=== PATIENT | male | born 1970 | race Caucasian/White ===

== ENCOUNTER 2019-09-02 06:21 | Emergency (ER) | payer OTHER ==
[2019-09-02 06:47] VITALS: BP 126/80; PULSE 77; TEMP 98.3; BMI 27.4
[2019-09-02] MEDS ORDERED: IBUPROFEN 400 MG TABLET (FP) PO ONE ×2 (07:35→08:55)
--- NOTE | 2019-09-02 07:35 | PDOC ---
History of Present Illness - General Chief Complaint: Pain Stated Complaint: INJURY Time Seen by Provider: 09/02/19 06:58 - History of Present Illness Initial Comments: 09/02/19 07:24 48 y/o male with no PMHx here with L leg injury ealrier this morning. Patient works at [employer] and was operating a asher hammer when the side of the asher hammer hit the inner part of his leg and his leg was pushed against a meat case. No fall, head trauma or LOC. Is now c/o L inner lower leg pain and L foot pain. Pain is worse with ambulating. Past History - Past Medical History Allergies/Adverse Reactions: Allergies Allergy/AdvReac Type Severity Reaction Status Date / Time No Known Allergies Allergy Verified 09/02/19 06:47 - Psycho Social/Smoking Cessation Hx Smoking History: Never smoked Hx Alcohol Use: Yes Drug/Substance Use Hx: No Review of Systems - Review of Systems Constitutional: No: Chills, Fever HEENTM: No: Blurred Vision, Double Vision Respiratory: No: Cough, Shortness of Breath Cardiac (ROS): No: Chest Pain, Lightheadedness, Palpitations, Syncope ABD/GI: No: Constipated, Diarrhea, Nausea, Vomiting *Physical Exam - Vital Signs Last Vital Signs Temp Pulse Resp BP Pulse Ox 98.3 F 77 18 126/80 97 09/02/19 06:22 09/02/19 06:22 09/02/19 06:22 09/02/19 06:22 09/02/19 06:22 - Physical Exam General Appearance: Yes: Nourished, Appropriately Dressed HEENT: positive: Normal Voice, Hearing Grossly Normal Neck: positive: Trachea midline, Supple Respiratory/Chest: positive: Lungs Clear, Normal Breath Sounds Cardiovascular: positive: Regular Rhythm, S1, S2 Vascular Pulses: Dorsalis-Pedis (R): 2+, Doralis-Pedis (L): 2+ Gastrointestinal/Abdominal: positive: Normal Bowel Sounds, Soft Extremity: positive: Other (LLE: L medial calf abrasion, point tenderness over L medial calcaneus, 2+ DP pulse) 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 VS unremarkable PE significant for L lateral leg pain and L calcaneal point tenderness. Will obtain L knee, L Tib/Fib, L foot XRs. 09/02/19 09:09 Foot, Tib/Fib, Ankle Xray negative for acute fracture 09/02/19 09:53 Patient reassessed @ bedside. Symptomatically improved, less pain on ambulation s/p NSAID. Will d/c home with return precautions, NSAID for analgesia. Clinical Impression: Muscle Strain/Contusion Discharge - Discharge Information Problems reviewed: Yes Clinical Impression/Diagnosis: Contusion of muscle Condition: Fair Disposition: HOME - Admission No - Follow up/Referral - Patient Discharge Instructions Patient Printed Discharge Instructions: Muscle Strain, DI for Contusion Additional Instructions: You are safe for discharge home. You can take Motrin 800 mg every 6 hours for your pain as needed up to 3200 mg total for your pain. Return to the Emergency Department for any new/worsening/concerning symptoms including severe pain, severe swelling or bruising. - Post Discharge Activity Work/Back to School Note: Back to Work
--- NOTE | 2019-09-02 10:09 | PDOC ---
Attending Attestation - Resident Resident Name: BrandiMichelle - ED Attending Attestation I have performed the following: I have examined & evaluated the patient, The case was reviewed & discussed with the resident, I agree w/resident's findings & plan - HPI HPI: 09/02/19 10:07 48-year-old healthy male presents with left lower leg pain after accidental injury. Patient was using a jackhammer, which slipped, and the body of the jackhammer struck his left knee and left inner lower leg, pushing it into a wall. No actual penetrating injury, was ambulatory at scene but complaining of some knee and left heel discomfort. No other injuries. - Physicial Exam PE: 09/02/19 10:08 Vital signs stable Well-appearing and comfortable seated in stretcher in no acute distress No hip tenderness, positive medial and lateral L knee discomfort to palpation in the joint spaces, no focal bony tenderness. Full flexion and extension with full strength, no laxity on anterior/posterior/valgus/varus stress. Full range of motion of ankle and toes with full strength, no focal bony tenderness, Ankle mortise is intact. No joint effusion. Neurovascular intact distally. Ambulatory with slight antalgia - Medical Decision Making 09/02/19 10:09 48-year-old male with left lower leg contusion/knee sprain, rule out fracture. No penetrating injury, no significant swelling, neurovascular intact. X-ray showed no evidence of fracture or dislocation RICE, ambulation as tolerated, Eric wrap for support
== END 2019-09-02 10:49 | disposition home or self-care (01) ==
LOC: JER 06:21
DX: S86.812A Strain of other muscle(s) and tendon(s) at lower leg level, left leg, initial encounter (principal); S80.12XA Contusion of left lower leg, initial encounter; S80.812A Abrasion, left lower leg, initial encounter; W31.2XXA Contact with powered woodworking and forming machines, initial encounter; Y93.89 Activity, other specified; Y92.512 Supermarket, store or market as the place of occurrence of the external cause; Y99.0 Civilian activity done for income or pay
CPT/HCPCS: 73562-TC-LT-FY; 73590-TC-LT-FY; 73610-TC-LT-FY; 73630-TC-LT; 99283-25

== ENCOUNTER 2021-10-15 04:37 | Emergency (ER) | payer OTHER, BC ==
[2021-10-15 05:08] VITALS: BP 119/79; PULSE 78; TEMP 99.2; BMI 32.5
[2021-10-15] MEDS ORDERED: KETOROLAC TROMETHAMINE 30 MG/1 ML VIAL IM ONE (07:18)
[2021-10-15] MEDS ORDERED: METHOCARBAMOL 500 MG TABLET PO ONE (07:19)
[2021-10-15] MEDS ORDERED: METHOCARBAMOL 500 MG TABLET ONE (07:23)
[2021-10-15] MEDS ORDERED: KETOROLAC TROMETHAMINE 30 MG/1 ML VIAL ONE (07:23)
== END 2021-10-15 07:30 | disposition home or self-care (01) ==
LOC: JER 04:37
PROC: 3E0233Z Introduction of Anti-inflammatory into Muscle, Percutaneous Approach (ICD-10-PCS; principal; 2021-10-15)
DX: M54.32 Sciatica, left side (principal)
CPT/HCPCS: 99284-25

== ENCOUNTER 2021-11-03 05:47 | Emergency (ER) | payer OTHER, BC ==
[2021-11-03 05:55] VITALS: BP 136/88; PULSE 66; TEMP 98; BMI 32.5
[2021-11-03] MEDS ORDERED: LIDOCAINE 5% TOPICAL PATCH TP ONE (06:15)
[2021-11-03] MEDS ORDERED: KETOROLAC TROMETHAMINE 30 MG/1 ML VIAL IM ONE (06:16)
[2021-11-03] MEDS ORDERED: ACETAMINOPHEN 325 MG TABLET (FP) PO ONE (06:20)
[2021-11-03] MEDS ORDERED: KETOROLAC TROMETHAMINE 30 MG/1 ML VIAL ONE (06:28)
[2021-11-03] MEDS ORDERED: LIDOCAINE 5% TOPICAL PATCH ONE (06:28)
[2021-11-03] MEDS ORDERED: ACETAMINOPHEN 325 MG TABLET (FP) ONE (06:28)
[2021-11-03] MEDS ORDERED: oxyCODONE HCL 5 MG TABLET PO ONE (08:21)
[2021-11-03] MEDS ORDERED: oxyCODONE HCL 5 MG TABLET ONE (08:23)
[2021-11-03] MEDS ORDERED: LIDOCAINE PATCH REMOVAL MC SCH (22:00)
== END 2021-11-03 08:45 | disposition home or self-care (01) ==
LOC: JER 05:47
PROC: 3E023GC Introduction of Other Therapeutic Substance into Muscle, Percutaneous Approach (ICD-10-PCS; principal; 2021-11-03)
DX: S30.0XXA Contusion of lower back and pelvis, initial encounter (principal); X50.0XXA Overexertion from strenuous movement or load, initial encounter
CPT/HCPCS: 93005; 93010; 99284-25

== ENCOUNTER 2021-11-03 10:17 | Inpatient (IN) | payer OTHER, BC ==
[2021-11-03] MEDS ORDERED: diazePAM 5 MG TABLET PO ONE (10:43)
[2021-11-03] MEDS ORDERED: diazePAM 5 MG TABLET ONE (10:50)
[2021-11-03] MEDS ORDERED: DEXAMETHASONE SOD PHOSPHATE 10 MG/1 ML VIAL IVPUSH ONE (10:52)
[2021-11-03] MEDS ORDERED: DEXAMETHASONE SOD PHOSPHATE 10 MG/1 ML VIAL ONE (11:16)
[2021-11-03 11:35] LABS: BASO % 0.5 % (0-2.0); EOS % 0.6 % (0-4.5); HEMATOCRIT 44.3 % (35.4-49); HEMOGLOBIN 14.7 GM/dL (11.7-16.9); LYMPH % 17.8 % (8-40); MCH 27.6 pg (25.7-33.7); MCHC 33.2 g/dl (32.0-35.9); MEAN CELL VOLUME 82.9 fl (80-96); MEAN PLT VOLUME 8.5 fl (7.5-11.1); MONO % 6.5 % (3.8-10.2); NEUT % 74.6 % (42.8-82.8); PLATELET COUNT 223 10^3/uL (134-434); RBC 5.35 M/mm3 (4.00-5.60); RDW 14.6 % (11.9-15.9); WHITE BLOOD COUNT 8.7 K/mm3 (4.0-10.0)
[2021-11-03 11:51] LABS: ACTIVATED PTT 31.1 SECONDS (25.2-36.5); INR 1.02 (0.83-1.09); PROTHROMBIN TIME (PATIENT) 11.7 SEC (9.7-13.0)
[2021-11-03 12:10] LABS: CALCIUM 9.4 mg/dL (8.5-10.1)
[2021-11-03 12:11] LABS: BLOOD UREA NITROGEN 25.3 mg/dL (7-18)
[2021-11-03 12:14] LABS: CREATININE 1.1 mg/dL (0.55-1.3)
[2021-11-03 12:15] LABS: BILIRUBIN,TOTAL 0.7 mg/dL (0.2-1)
[2021-11-03 12:16] LABS: TOT PROT 7.4 g/dl (6.4-8.2)
[2021-11-03] MEDS ORDERED: PANTOPRAZOLE 40 MG TABLET PO ONE ×2 (16:28→16:31)
[2021-11-03] MEDS ORDERED: NALOXONE HCL 0.4 MG/ML VIAL IVPUSH PRN (18:53)
[2021-11-03] MEDS ORDERED: ONDANSETRON 4 MG/2 ML VIAL IVPUSH PRN (18:53)
[2021-11-03] MEDS ORDERED: DOCUSATE SODIUM 100 MG CAPSULE (FP) PO PRN (18:53)
[2021-11-03] MEDS ORDERED: oxyCODONE HCL 5 MG TABLET ONE (19:17)
[2021-11-03] MEDS: oxyCODONE HCL 5 MG TABLET PO PRN (19:23)
[2021-11-03] MEDS: HEPARIN NA (PORCINE) 5,000 UNITS/ML 1ML VIAL SQ SCH (21:08)
[2021-11-03] MEDS: GABAPENTIN 300 MG CAPSULE PO SCH (21:08)
[2021-11-03 22:51] VITALS: BMI 23.1
[2021-11-04] MEDS: oxyCODONE HCL 5 MG TABLET PO PRN ×6 (01:51→21:15)
[2021-11-04] MEDS: HEPARIN NA (PORCINE) 5,000 UNITS/ML 1ML VIAL SQ SCH ×3 (06:17→21:15)
[2021-11-04] MEDS: GABAPENTIN 300 MG CAPSULE PO SCH ×3 (06:17→21:14)
[2021-11-04] MEDS: PANTOPRAZOLE 40 MG TABLET PO SCH (09:32)
[2021-11-04] MEDS: DEXAMETHASONE SOD PHOSPHATE 10 MG/1 ML VIAL IVPUSH SCH (09:32)
[2021-11-05] MEDS: oxyCODONE HCL 5 MG TABLET PO PRN ×3 (06:00→12:38)
[2021-11-05] MEDS: GABAPENTIN 300 MG CAPSULE PO SCH ×3 (06:00→21:07)
[2021-11-05] MEDS: HEPARIN NA (PORCINE) 5,000 UNITS/ML 1ML VIAL SQ SCH ×3 (06:00→21:07)
[2021-11-05] MEDS: PANTOPRAZOLE 40 MG TABLET PO SCH (09:17)
[2021-11-05] MEDS: DEXAMETHASONE SOD PHOSPHATE 10 MG/1 ML VIAL IVPUSH SCH (09:18)
[2021-11-05] MEDS: IBUPROFEN 400 MG TABLET (FP) PO PRN (15:25)
[2021-11-06] MEDS: GABAPENTIN 300 MG CAPSULE PO SCH ×3 (05:50→21:27)
[2021-11-06] MEDS: HEPARIN NA (PORCINE) 5,000 UNITS/ML 1ML VIAL SQ SCH ×3 (05:50→21:27)
[2021-11-06] MEDS: DEXAMETHASONE SOD PHOSPHATE 10 MG/1 ML VIAL IVPUSH SCH (09:24)
[2021-11-06] MEDS: PANTOPRAZOLE 40 MG TABLET PO SCH (09:24)
[2021-11-06] MEDS: oxyCODONE HCL 5 MG TABLET PO PRN (13:17)
[2021-11-06] MEDS: IBUPROFEN 400 MG TABLET (FP) PO PRN (19:06)
[2021-11-06] MEDS: predniSONE 20 MG TABLET (UD) PO SCH (21:27)
[2021-11-07] MEDS: oxyCODONE HCL 5 MG TABLET PO PRN ×2 (06:01→20:59)
[2021-11-07] MEDS: GABAPENTIN 300 MG CAPSULE PO SCH ×3 (06:01→20:59)
[2021-11-07] MEDS: HEPARIN NA (PORCINE) 5,000 UNITS/ML 1ML VIAL SQ SCH ×3 (06:01→21:04)
[2021-11-07] MEDS: PANTOPRAZOLE 40 MG TABLET PO SCH (09:00)
[2021-11-07] MEDS: predniSONE 20 MG TABLET (UD) PO SCH ×2 (09:00→20:59)
[2021-11-07 09:16] LABS: BASO % 0.2 % (0-2.0); EOS % 0.1 % (0-4.5); HEMATOCRIT 43.6 % (35.4-49); LYMPH % 15.8 % (8-40); MCH 28.3 pg (25.7-33.7); MCHC 34.5 g/dl (32.0-35.9); MEAN CELL VOLUME 82.1 fl (80-96); MONO % 5.9 % (3.8-10.2); PLATELET COUNT 239 10^3/uL (134-434); RBC 5.31 M/mm3 (4.00-5.60); RDW 14.2 % (11.9-15.9); WHITE BLOOD COUNT 9.9 K/mm3 (4.0-10.0)
[2021-11-07 09:46] LABS: CALCIUM 9.2 mg/dL (8.5-10.1)
[2021-11-07 09:47] LABS: ALBUMIN 3.6 g/dl (3.4-5.0); BLOOD UREA NITROGEN 24.6 mg/dL (7-18)
[2021-11-07 09:51] LABS: BILIRUBIN,TOTAL 0.5 mg/dL (0.2-1)
[2021-11-07 10:06] LABS: TOT PROT 7.4 g/dl (6.4-8.2)
[2021-11-08] MEDS: GABAPENTIN 300 MG CAPSULE PO SCH ×3 (05:57→21:23)
[2021-11-08] MEDS: HEPARIN NA (PORCINE) 5,000 UNITS/ML 1ML VIAL SQ SCH ×3 (05:57→21:22)
[2021-11-08] MEDS: predniSONE 20 MG TABLET (UD) PO SCH ×2 (09:46→21:23)
[2021-11-08] MEDS: PANTOPRAZOLE 40 MG TABLET PO SCH (09:46)
[2021-11-09] MEDS ORDERED: D5-1/2NS+20 MEQ KCL - 20 MEQ/1,000 ML INFUS.BAG IV SCH ×2 (00:01→11:00)
[2021-11-09] MEDS: GABAPENTIN 300 MG CAPSULE PO SCH ×3 (06:21→21:26)
[2021-11-09] MEDS: HEPARIN NA (PORCINE) 5,000 UNITS/ML 1ML VIAL SQ SCH (06:31)
[2021-11-09] MEDS ORDERED: VANCOMYCIN 1,000 MG VIAL (RESTRICTED TO ID ONLY) ONE (09:06)
[2021-11-09] MEDS ORDERED: THROMBIN (BOVINE) 5,000 UNIT VIAL TP ONE ×2 (09:06→10:34)
[2021-11-09] MEDS ORDERED: methylPREDNISolone ACET (DEPO) 80 MG/1 ML VIAL ONE (09:06)
[2021-11-09] MEDS ORDERED: BUPIVACAINE HCL/PF 0.5% (5MG/ML) 10 ML VIAL ONE (09:06)
[2021-11-09] MEDS: PANTOPRAZOLE 40 MG TABLET PO SCH (09:10)
[2021-11-09] MEDS: predniSONE 20 MG TABLET (UD) PO SCH (09:10)
[2021-11-09] MEDS ORDERED: PROPOFOL 20 ML ONE (09:16)
[2021-11-09] MEDS ORDERED: SUCCINYLCHOLINE CHLORIDE 200 MG/10 ML SYRINGE ONE (09:16)
[2021-11-09] MEDS ORDERED: MIDAZOLAM HCL 2 MG/2 ML SINGLE DOSE VIAL ONE ×2 (09:17)
[2021-11-09] MEDS ORDERED: ROCURONIUM BROMIDE 50 MG/5 ML SYRINGE ONE (09:17)
[2021-11-09] MEDS ORDERED: ONDANSETRON 4 MG/2 ML VIAL ONE ×2 (10:09→10:12)
[2021-11-09] MEDS ORDERED: ceFAZolin SODIUM 1 GM VIAL IVPB ONE (10:22)
[2021-11-09] MEDS ORDERED: GELATIN SPONGE,ABSORBABLE 1 GM PACKET TP ONE (10:35)
[2021-11-09] MEDS ORDERED: BUPIVACAINE HCL/PF 0.5% (5 MG/ML) 30 ML VIAL IJ ONE (10:39)
[2021-11-09] MEDS ORDERED: oxyCODONE HCL 5 MG TABLET PO PRN ×2 (10:55→11:47)
[2021-11-09] MEDS ORDERED: ONDANSETRON 4 MG/2 ML VIAL IVPUSH PRN ×2 (10:55→11:47)
[2021-11-09] MEDS ORDERED: NEOSTIGMINE METHYLSULFATE 0.5 MG/1 ML - 10 ML MDV ONE (10:58)
[2021-11-09] MEDS ORDERED: diazePAM 5 MG TABLET PO SCH (11:00)
[2021-11-09] MEDS ORDERED: LACTATED RINGERS SOLUTION 1,000 ML IV SCH (11:45)
[2021-11-09] MEDS ORDERED: NALOXONE HCL 0.4 MG/ML VIAL IVPUSH PRN (11:47)
[2021-11-09] MEDS: D5-1/2NS+20 MEQ KCL - 20 MEQ/1,000 ML INFUS.BAG IV SCH (12:13)
[2021-11-09] MEDS: DOCUSATE SODIUM 100 MG CAPSULE (FP) PO SCH ×2 (13:49→21:26)
[2021-11-09] MEDS ORDERED: DOCUSATE SODIUM 100 MG CAPSULE (FP) PO SCH (14:00)
[2021-11-09] MEDS ORDERED: ceFAZolin SODIUM 1 GM VIAL ONE (17:14)
[2021-11-09] MEDS ORDERED: DEXTROSE 5%-WATER - 50 ML IVPB ONE (17:14)
[2021-11-09] MEDS: CEFAZOLIN 1 GM in DEXTROSE 5%-WATER - 50 ML IVPB SCH (17:16)
[2021-11-09] MEDS ORDERED: CEFAZOLIN 1 GM in DEXTROSE 5%-WATER - 50 ML IVPB SCH (18:00)
[2021-11-09] MEDS: diazePAM 5 MG TABLET PO SCH (18:49)
[2021-11-09] MEDS: oxyCODONE HCL 5 MG TABLET PO PRN (21:32)
[2021-11-10] MEDS ORDERED: ceFAZolin SODIUM 1 GM VIAL ONE (00:59)
[2021-11-10] MEDS ORDERED: DEXTROSE 5%-WATER - 50 ML IVPB ONE (01:00)
[2021-11-10] MEDS: CEFAZOLIN 1 GM in DEXTROSE 5%-WATER - 50 ML IVPB SCH (01:03)
[2021-11-10] MEDS: diazePAM 5 MG TABLET PO SCH ×3 (02:28→18:27)
[2021-11-10] MEDS: GABAPENTIN 300 MG CAPSULE PO SCH ×3 (05:32→22:00)
[2021-11-10] MEDS: DOCUSATE SODIUM 100 MG CAPSULE (FP) PO SCH ×3 (05:32→22:00)
[2021-11-10] MEDS: D5-1/2NS+20 MEQ KCL - 20 MEQ/1,000 ML INFUS.BAG IV SCH (05:33)
[2021-11-10 07:54] LABS: HEMATOCRIT 40.4 % (35.4-49); HEMOGLOBIN 13.3 GM/dL (11.7-16.9); MCH 27.3 pg (25.7-33.7); MEAN CELL VOLUME 82.9 fl (80-96); MEAN PLT VOLUME 9.1 fl (7.5-11.1); PLATELET COUNT 237 10^3/uL (134-434); RBC 4.87 M/mm3 (4.00-5.60); RDW 14.5 % (11.9-15.9); WHITE BLOOD COUNT 15.1 K/mm3 (4.0-10.0)
[2021-11-10 08:32] LABS: ALBUMIN 3.1 g/dl (3.4-5.0); BLOOD UREA NITROGEN 15.9 mg/dL (7-18)
[2021-11-10 08:33] LABS: MAGNESIUM 2.4 mg/dL (1.8-2.4); PHOSPHOROUS 4.2 mg/dL (2.5-4.9)
[2021-11-10 08:34] LABS: BILIRUBIN,TOTAL 0.6 mg/dL (0.2-1); TOT PROT 6.4 g/dl (6.4-8.2)
[2021-11-10 08:35] LABS: CALCIUM 9.1 mg/dL (8.5-10.1); CREATININE 0.9 mg/dL (0.55-1.3)
[2021-11-10] MEDS: oxyCODONE HCL 5 MG TABLET PO PRN (09:44)
[2021-11-10] MEDS: PANTOPRAZOLE 40 MG TABLET PO SCH (09:44)
[2021-11-10] MEDS: ACETAMINOPHEN 325 MG TABLET (FP) PO PRN (18:26)
[2021-11-11] MEDS: diazePAM 5 MG TABLET PO SCH ×3 (03:16→18:13)
[2021-11-11] MEDS: DOCUSATE SODIUM 100 MG CAPSULE (FP) PO SCH ×3 (06:11→21:31)
[2021-11-11] MEDS: ACETAMINOPHEN 325 MG TABLET (FP) PO PRN ×2 (06:11→21:31)
[2021-11-11] MEDS: GABAPENTIN 300 MG CAPSULE PO SCH ×3 (06:12→21:31)
[2021-11-11 07:37] LABS: HEMATOCRIT 40.9 % (35.4-49); HEMOGLOBIN 13.5 GM/dL (11.7-16.9); MCH 27.4 pg (25.7-33.7); MCHC 32.9 g/dl (32.0-35.9); MEAN CELL VOLUME 83.3 fl (80-96); MEAN PLT VOLUME 8.9 fl (7.5-11.1); PLATELET COUNT 226 10^3/uL (134-434); RBC 4.91 M/mm3 (4.00-5.60); RDW 15.1 % (11.9-15.9); WHITE BLOOD COUNT 11.8 K/mm3 (4.0-10.0)
[2021-11-11 07:52] LABS: BLOOD UREA NITROGEN 24.5 mg/dL (7-18); CALCIUM 9.1 mg/dL (8.5-10.1); MAGNESIUM 2.4 mg/dL (1.8-2.4)
[2021-11-11 07:55] LABS: CREATININE 0.9 mg/dL (0.55-1.3)
[2021-11-11 07:57] LABS: TOT PROT 6.3 g/dl (6.4-8.2)
[2021-11-11 07:59] LABS: BILIRUBIN,TOTAL 0.6 mg/dL (0.2-1)
[2021-11-11] MEDS: oxyCODONE HCL 5 MG TABLET PO PRN (08:20)
[2021-11-11] MEDS: PANTOPRAZOLE 40 MG TABLET PO SCH (09:31)
[2021-11-12] MEDS: diazePAM 5 MG TABLET PO SCH (03:27)
[2021-11-12] MEDS: oxyCODONE HCL 5 MG TABLET PO PRN (06:11)
[2021-11-12] MEDS: DOCUSATE SODIUM 100 MG CAPSULE (FP) PO SCH ×3 (06:12→21:29)
[2021-11-12] MEDS: GABAPENTIN 300 MG CAPSULE PO SCH ×3 (06:12→21:29)
[2021-11-12] MEDS: PANTOPRAZOLE 40 MG TABLET PO SCH (09:08)
[2021-11-12] MEDS ORDERED: KETOROLAC TROMETHAMINE 30 MG/1 ML VIAL IVPUSH PRN (09:56)
[2021-11-12] MEDS: ACETAMINOPHEN 325 MG TABLET (FP) PO PRN (12:04)
[2021-11-13] MEDS: DOCUSATE SODIUM 100 MG CAPSULE (FP) PO SCH ×3 (06:15→21:21)
[2021-11-13] MEDS: GABAPENTIN 300 MG CAPSULE PO SCH ×3 (06:15→21:21)
[2021-11-13] MEDS: PANTOPRAZOLE 40 MG TABLET PO SCH (09:03)
[2021-11-13] MEDS: oxyCODONE HCL 5 MG TABLET PO PRN (10:54)
[2021-11-13 11:06] LABS: SARS-CoV-2 NAA Not Detected (Not Detected)
[2021-11-14] MEDS: DOCUSATE SODIUM 100 MG CAPSULE (FP) PO SCH ×3 (06:08→21:12)
[2021-11-14] MEDS: GABAPENTIN 300 MG CAPSULE PO SCH ×3 (06:08→21:12)
[2021-11-14] MEDS: ACETAMINOPHEN 325 MG TABLET (FP) PO PRN ×2 (09:39→20:17)
[2021-11-14] MEDS: PANTOPRAZOLE 40 MG TABLET PO SCH (09:41)
[2021-11-15] MEDS: ACETAMINOPHEN 325 MG TABLET (FP) PO PRN (04:53)
[2021-11-15] MEDS: GABAPENTIN 300 MG CAPSULE PO SCH ×3 (05:54→21:30)
[2021-11-15] MEDS: DOCUSATE SODIUM 100 MG CAPSULE (FP) PO SCH ×3 (05:54→21:30)
[2021-11-15] MEDS: PANTOPRAZOLE 40 MG TABLET PO SCH (09:55)
[2021-11-15 13:13] LABS: SARS-CoV-2 NAA Not Detected (Not Detected)
[2021-11-15] MEDS: traMADol HCL 50 MG TABLET PO PRN ×2 (14:07→21:30)
[2021-11-15] MEDS ORDERED: PHENOL 177 ML SPRAY BOTTLE MM PRN (16:17)
[2021-11-15] MEDS ORDERED: AZITHROMYCIN 500 MG TABLET PO ONE (16:31)
[2021-11-15] MEDS: BENZOCAINE/MENTH/CETYLPYRD CL 1 EACH LOZENGE MM PRN (17:55)
[2021-11-15] MEDS: oxyCODONE HCL 5 MG TABLET PO PRN (18:28)
[2021-11-16] MEDS: GABAPENTIN 300 MG CAPSULE PO SCH ×3 (05:36→21:05)
[2021-11-16] MEDS: oxyCODONE HCL 5 MG TABLET PO PRN (05:36)
[2021-11-16] MEDS: DOCUSATE SODIUM 100 MG CAPSULE (FP) PO SCH ×3 (05:37→21:05)
[2021-11-16] MEDS: PANTOPRAZOLE 40 MG TABLET PO SCH (09:39)
[2021-11-16] MEDS: AZITHROMYCIN 250 MG TABLET PO SCH (12:26)
[2021-11-16] MEDS: ACETAMINOPHEN 325 MG TABLET (FP) PO PRN (16:18)
[2021-11-17] MEDS: ACETAMINOPHEN 325 MG TABLET (FP) PO PRN (00:21)
[2021-11-17] MEDS: GABAPENTIN 300 MG CAPSULE PO SCH ×2 (05:45→13:51)
[2021-11-17] MEDS: DOCUSATE SODIUM 100 MG CAPSULE (FP) PO SCH ×2 (05:45→13:51)
[2021-11-17] MEDS: AZITHROMYCIN 250 MG TABLET PO SCH (08:59)
[2021-11-17] MEDS: PANTOPRAZOLE 40 MG TABLET PO SCH (08:59)
[2021-11-17] MEDS: BENZOCAINE/MENTH/CETYLPYRD CL 1 EACH LOZENGE MM PRN (09:01)
[2021-11-17 13:09] LABS: SARS-CoV-2 NAA Detected (Not Detected)
[2021-11-17 14:22] VITALS: BP 122/74; PULSE 87; TEMP 99
== END 2021-11-17 18:54 | disposition home or self-care (01) | DRG 310 ==
LOC: JER 10:17 → JERBED 16:28 → J6S 20:05
PROVIDERS: ADMIT Internal Medicine; ATTEND Family Medicine
PROC: 00NY0ZZ Release Lumbar Spinal Cord, Open Approach (ICD-10-PCS; 2021-11-09)
PROC: 01NB0ZZ Release Lumbar Nerve, Open Approach (ICD-10-PCS; 2021-11-09)
PROC: 0ST20ZZ Resection of Lumbar Vertebral Disc, Open Approach (ICD-10-PCS; principal; 2021-11-09 08:30)
DX: M51.16 Intervertebral disc disorders with radiculopathy, lumbar region (principal); R26.81 Unsteadiness on feet; G57.92 Unspecified mononeuropathy of left lower limb; J02.9 Acute pharyngitis, unspecified; R51.9 Headache, unspecified; G95.19 Other vascular myelopathies
CPT/HCPCS: 36415; 70450-TC; 72100-TC-FY; 72148-TC; 80053; 83735; 84100; 85025; 85027; 85610; 85730; 86850; 86900; 86901; 87070; 87633; 88304-TC; 94010; 94760; 97116-GP; 97162-GP; 99285-25; C9803-CS; J1100; J1644; U0003; U0005